=== PATIENT | female | born 1935 | race Caucasian/White ===

== ENCOUNTER 2017-08-16 12:35 | Inpatient (IN) | payer MEDICARE, BC ==
[~2017-08-16] VITALS: Ht 162.6 cm; Wt 74.8 kg
[~2017-08-16 12:35] MED LIST: ARFO15VI2 IH; ATOR20TA PO; BENZ-16 PO; BUDE6HFA IH; CALC-1011 PO; CALC-258 PO; COMBIV INH; CRAN1POW2 MC; CYAN1LOZ SL; DEBROX EACH EAR; DOCU-150 PO; DULO60CA44 PO; ESOM40CA PO; FURO-151 PO; GUAI1TBM14 PO; HYDR-519 PO; IPRA0.2S51 IH; LACT1CAP68 PO; LEVO75TA7 PO; LORA0.5T2 PO; METH1TAB33 PO; METO5TAB69 PO; MIRA25TA PO; MONT10TA21 PO; MULT1CAP34 PO; OMEG-31 PO; PARO30TA76 PO; POTA20TA82 PO; PREG50CA PO; SYSOS BOTHEYE; TRAZ-132 PO; VIT1CAPS5 PO; VIT1CAPS7 PO; lactulose PO
[2017-08-16] MEDS ORDERED: ALBUTEROL (0.083%) 2.5MG/3ML NEB HHN STA ×2 (12:58→13:51)
[2017-08-16] MEDS ORDERED: IPRATROPIUM BROMIDE (0.02%) 0.5MG/2.5ML NEB HHN STA ×2 (12:58→13:51)
[2017-08-16 13:31] LABS: BASOPHILS % 0.4 % (0.0-2.0); HEMATOCRIT. 33.6 % (36.0-48.0); HEMOGLOBIN. 11.1 g/dL (12.0-16.0); LYMPHOCYTES % 14.3 % (20.0-50.0); MEAN CORPUSCULAR HEMOGLOBIN 31.9 pg (28.0-32.0); MEAN CORPUSCULAR VOLUME 96.6 fL (81.0-99.0); MEAN PLATELET VOLUME 8.1 fl (7.4-10.4); MONOCYTES % 6.7 % (2.0-8.0); NEUTROPHILS % 75.6 % (40.0-76.0); PLATELET 182 x1000/uL (130-400); RED BLOOD CELL COUNT 3.48 mill/uL (4.2-5.4); RED CELL DISTRIBUTION WIDTH 15.6 % (11.6-14.6)
[2017-08-16 13:34] LABS: PROTHROMBIN TIME 10.8 sec (9.4-11.6)
[2017-08-16 13:44] LABS: CARBON DIOXIDE 38 mEq/L (21-32); CHLORIDE 95 mEq/L (98-107); TROPONIN I < 0.02 ng/mL (0.00-0.04)
[2017-08-16] MEDS ORDERED: METHYLPREDNISOLONE SOD SUCC 125 MG/2 ML VIAL IV STA (13:51)
[2017-08-16] MEDS ORDERED: FUROSEMIDE 20MG/2ML VIAL IVP ONE (14:00)
[2017-08-16] MEDS ORDERED: CLONIDINE 0.1MG TABLET PO PRN (16:30)
[2017-08-16 18:28] VITALS: BP 139/53
[2017-08-16] MEDS: POTASSIUM CHLORIDE 20MEQ TABLET SR PO SCH (18:55)
[2017-08-16] MEDS: FUROSEMIDE 40MG/4ML VIAL IVP SCH (18:55)
[2017-08-16] MEDS: METHYLPREDNISOLONE SOD SUCC 125 MG/2 ML VIAL IV SCH (18:56)
[2017-08-16 19:43] VITALS: BP 130/73
[2017-08-16] MEDS ORDERED: DEXTROSE 50% WATER 50ML SYRINGE IV PRN (19:45)
[2017-08-16] MEDS: BLOOD SUGAR DIAGNOSTIC STRIP TEST SCH (21:28)
[2017-08-16] MEDS: INSULIN LISPRO 100 UNITS/ML SUBCUT SCH (21:32)
[2017-08-16] MEDS: IPRATROPIUM/ALBUTEROL 0.5-3(2.5)MG/3ML NEB HHN SCH (21:32)
[2017-08-16] MEDS: CEFTRIAXONE 1 G PREMIX 50 ML IV SCH (21:33)
[2017-08-16] MEDS: ENOXAPARIN 40MG/0.4ML SYR SUBCUT SCH (21:33)
[2017-08-16] MEDS: OMEPRAZOLE 20MG CAPSULE EXTENDED RELEASE PO SCH (21:33)
[2017-08-16] MEDS: ATORVASTATIN CALCIUM 20MG TABLET PO SCH (21:33)
[2017-08-16] MEDS: HYDROCODONE/ACETAMINOPHEN 10/325MG TABLET PO PRN (23:06)
[2017-08-16 23:42] VITALS: BP 150/69
[2017-08-17] MEDS: IPRATROPIUM/ALBUTEROL 0.5-3(2.5)MG/3ML NEB HHN SCH ×6 (00:06→20:56)
[2017-08-17] MEDS: METHYLPREDNISOLONE SOD SUCC 125 MG/2 ML VIAL IV SCH ×4 (02:52→20:30)
[2017-08-17 04:48] VITALS: BP 166/82
[2017-08-17] MEDS: HYDROCODONE/ACETAMINOPHEN 10/325MG TABLET PO PRN ×2 (05:05→12:35)
[2017-08-17] MEDS: OMEPRAZOLE 20MG CAPSULE EXTENDED RELEASE PO SCH ×2 (06:39→20:30)
[2017-08-17] MEDS: LEVOTHYROXINE SODIUM 75MCG TABLET PO SCH (06:40)
[2017-08-17] MEDS: BLOOD SUGAR DIAGNOSTIC STRIP TEST SCH ×4 (06:44→20:32)
[2017-08-17 07:11] LABS: HEMOGLOBIN. 12.8 g/dL (12.0-16.0); MEAN CORPUSCULAR HEMOGLOBIN 32.6 pg (28.0-32.0); MEAN CORPUSCULAR VOLUME 96.2 fL (81.0-99.0); MEAN PLATELET VOLUME 8.6 fl (7.4-10.4); PLATELET 210 x1000/uL (130-400); RED BLOOD CELL COUNT 3.95 mill/uL (4.2-5.4); RED CELL DISTRIBUTION WIDTH 15.7 % (11.6-14.6)
[2017-08-17 07:53] LABS: CHLORIDE 91 mEq/L (98-107); CREATINE KINASE 28 IU/L (26-192); CREATINE KINASE MB FRACTION 0.9 ng/mL (0.5-3.6); HDL CHOLESTEROL 78 mg/dL (40-59); LDL CHOLESTEROL 83 mg/dL (5-100)
[2017-08-17 07:54] LABS: TROPONIN I < 0.02 ng/mL (0.00-0.04)
[2017-08-17 08:00] VITALS: BP 166/73
[2017-08-17] MEDS: DULOXETINE HCL 60MG DR CAPSULE PO SCH (08:18)
[2017-08-17] MEDS: POTASSIUM CHLORIDE 20MEQ TABLET SR PO SCH (08:18)
[2017-08-17 08:20] LABS: CARBON DIOXIDE 40 mEq/L (21-32)
[2017-08-17] MEDS: INSULIN LISPRO 100 UNITS/ML SUBCUT SCH ×4 (08:20→20:32)
[2017-08-17] MEDS ORDERED: FUROSEMIDE 100MG/10ML VIAL IVP SCH (09:00)
[2017-08-17] MEDS: FUROSEMIDE 40MG/4ML VIAL IVP SCH (09:00)
[2017-08-17] MEDS ORDERED: DEXTROSE 50% WATER 50ML SYRINGE IV PRN (10:30)
[2017-08-17] MEDS ORDERED: ONDANSETRON HCL 4MG/2ML VIAL IV PRN (10:45)
[2017-08-17] MEDS ORDERED: ACETAMINOPHEN 325MG TABLET PO PRN (10:45)
[2017-08-17] MEDS: LOSARTAN POTASSIUM 25 MG TABLET PO SCH (11:30)
[2017-08-17] MEDS ORDERED: CLONIDINE 0.2MG TABLET PO PRN ×2 (11:30)
[2017-08-17] MEDS ORDERED: ZOLPIDEM TARTRATE 5MG TABLET PO PRN ×3 (11:30→21:00)
[2017-08-17 12:00] VITALS: BP 106/45
[2017-08-17] MEDS: ASPIRIN 81MG EC TABLET PO SCH (12:04)
[2017-08-17] MEDS ORDERED: BLOOD SUGAR DIAGNOSTIC STRIP TEST SCH (12:20)
[2017-08-17 16:00] VITALS: BP 110/60
[2017-08-17 17:38] LABS: PLATELET ESTIMATE NORMAL
[2017-08-17 20:24] LABS: CLARITY URINE CLOUDY (CLEAR); COLOR URINE YELLOW (YELLOW); GLUCOSE URINE NEGATIVE (NEGATIVE); KETONES URINE NEGATIVE (NEGATIVE); LEUKOCYTE ESTERASE URINE 3+ (NEGATIVE); NITRITE URINE NEGATIVE (NEGATIVE); OCCULT BLOOD URINE 1+ (NEGATIVE); PROTEIN URINE 1+ (NEGATIVE); SPECIFIC GRAVITY URINE 1.015 (1.005-1.030); UROBILINOGEN URINE 0.2 E.U./dL (0.2-1.0)
[2017-08-17] MEDS: ENOXAPARIN 40MG/0.4ML SYR SUBCUT SCH (20:29)
[2017-08-17] MEDS: CEFTRIAXONE 1 G PREMIX 50 ML IV SCH (20:29)
[2017-08-17] MEDS: ATORVASTATIN CALCIUM 20MG TABLET PO SCH (20:30)
[2017-08-17 20:51] VITALS: BP 128/47
[2017-08-18 00:27] VITALS: BP 180/98
[2017-08-18] MEDS: IPRATROPIUM/ALBUTEROL 0.5-3(2.5)MG/3ML NEB HHN SCH ×5 (00:43→16:56)
[2017-08-18] MEDS: HYDROCODONE/ACETAMINOPHEN 10/325MG TABLET PO PRN ×2 (03:05→11:05)
[2017-08-18 04:00] VITALS: BP 139/82
[2017-08-18 06:24] LABS: BASOPHILS % 0.1 % (0.0-2.0); HEMATOCRIT. 38.2 % (36.0-48.0); HEMOGLOBIN. 12.7 g/dL (12.0-16.0); LYMPHOCYTES % 7.2 % (20.0-50.0); MEAN CORPUSCULAR VOLUME 95.8 fL (81.0-99.0); MEAN PLATELET VOLUME 8.7 fl (7.4-10.4); NEUTROPHILS % 85.7 % (40.0-76.0); PLATELET 223 x1000/uL (130-400); RED BLOOD CELL COUNT 3.99 mill/uL (4.2-5.4); RED CELL DISTRIBUTION WIDTH 16.3 % (11.6-14.6)
[2017-08-18] MEDS: LEVOTHYROXINE SODIUM 75MCG TABLET PO SCH (06:32)
[2017-08-18] MEDS: OMEPRAZOLE 20MG CAPSULE EXTENDED RELEASE PO SCH ×2 (06:32→20:50)
[2017-08-18] MEDS: BLOOD SUGAR DIAGNOSTIC STRIP TEST SCH ×4 (06:32→20:50)
[2017-08-18 07:42] LABS: CARBON DIOXIDE 38 mEq/L (21-32); CHLORIDE 92 mEq/L (98-107); CREATINE KINASE 41 IU/L (26-192); CREATINE KINASE MB FRACTION 1.7 ng/mL (0.5-3.6); HDL CHOLESTEROL 75 mg/dL (40-59); LDL CHOLESTEROL 78 mg/dL (5-100); TROPONIN I 0.03 ng/mL (0.00-0.04)
[2017-08-18] MEDS: INSULIN LISPRO 100 UNITS/ML SUBCUT SCH ×4 (07:50→20:52)
[2017-08-18 08:00] VITALS: BP 161/79
[2017-08-18] MEDS: POTASSIUM CHLORIDE 20MEQ TABLET SR PO SCH (08:17)
[2017-08-18] MEDS: FUROSEMIDE 40MG/4ML VIAL IVP SCH (08:17)
[2017-08-18] MEDS: ASPIRIN 81MG EC TABLET PO SCH (08:17)
[2017-08-18] MEDS: METHYLPREDNISOLONE SOD SUCC 125 MG/2 ML VIAL IV SCH ×3 (08:17→20:49)
[2017-08-18] MEDS: DULOXETINE HCL 60MG DR CAPSULE PO SCH (08:17)
[2017-08-18] MEDS: LOSARTAN POTASSIUM 25 MG TABLET PO SCH ×2 (08:17→09:45)
[2017-08-18] MEDS: CYCLOBENZAPRINE 10MG TABLET PO SCH ×3 (09:44→20:51)
[2017-08-18] MEDS: GUAIFENESIN 600MG ER TABLET PO SCH ×2 (09:44→20:50)
[2017-08-18] MEDS ORDERED: AZITHROMYCIN 500 MG in DEXT 5% WATER 250 ML IV SCH (11:00)
[2017-08-18] MEDS: DOCUSATE SODIUM 100MG CAPSULE PO PRN (11:04)
[2017-08-18 12:00] VITALS: BP 103/60
[2017-08-18] MEDS ORDERED: POTASSIUM CHLORIDE 20MEQ TABLET SR PO NR (13:15)
[2017-08-18 16:00] VITALS: BP 121/66
[2017-08-18 20:43] VITALS: BP 119/67
[2017-08-18] MEDS: ENOXAPARIN 40MG/0.4ML SYR SUBCUT SCH (20:49)
[2017-08-18] MEDS: CEFTRIAXONE 1 G PREMIX 50 ML IV SCH (20:49)
[2017-08-18] MEDS: ATORVASTATIN CALCIUM 20MG TABLET PO SCH (20:50)
[2017-08-19 00:09] VITALS: BP 160/91
[2017-08-19] MEDS: HYDROCODONE/ACETAMINOPHEN 10/325MG TABLET PO PRN ×2 (00:26→08:18)
[2017-08-19] MEDS: IPRATROPIUM/ALBUTEROL 0.5-3(2.5)MG/3ML NEB HHN SCH ×4 (01:14→12:22)
[2017-08-19 01:47] VITALS: BP 150/76
[2017-08-19 04:00] VITALS: BP 148/86
[2017-08-19 06:18] LABS: BASOPHILS % 0.1 % (0.0-2.0); HEMATOCRIT. 39.4 % (36.0-48.0); HEMOGLOBIN. 13.2 g/dL (12.0-16.0); LYMPHOCYTES % 9.8 % (20.0-50.0); MEAN CORPUSCULAR HEMOGLOBIN 31.9 pg (28.0-32.0); MEAN CORPUSCULAR VOLUME 95.6 fL (81.0-99.0); MEAN PLATELET VOLUME 8.8 fl (7.4-10.4); MONOCYTES % 6.7 % (2.0-8.0); NEUTROPHILS % 83.4 % (40.0-76.0); PLATELET 223 x1000/uL (130-400); RED BLOOD CELL COUNT 4.13 mill/uL (4.2-5.4); RED CELL DISTRIBUTION WIDTH 16.1 % (11.6-14.6)
[2017-08-19] MEDS: CYCLOBENZAPRINE 10MG TABLET PO SCH (06:31)
[2017-08-19] MEDS: OMEPRAZOLE 20MG CAPSULE EXTENDED RELEASE PO SCH (06:31)
[2017-08-19] MEDS: LEVOTHYROXINE SODIUM 75MCG TABLET PO SCH (06:31)
[2017-08-19] MEDS: BLOOD SUGAR DIAGNOSTIC STRIP TEST SCH (06:32)
[2017-08-19 07:26] LABS: CARBON DIOXIDE 38 mEq/L (21-32); CHLORIDE 90 mEq/L (98-107)
[2017-08-19] MEDS: INSULIN LISPRO 100 UNITS/ML SUBCUT SCH (07:46)
[2017-08-19 07:49] VITALS: BP 128/86
[2017-08-19] MEDS: DOCUSATE SODIUM 100MG CAPSULE PO PRN (08:18)
[2017-08-19] MEDS: METHYLPREDNISOLONE SOD SUCC 125 MG/2 ML VIAL IV SCH (08:18)
[2017-08-19] MEDS: DULOXETINE HCL 60MG DR CAPSULE PO SCH (08:18)
[2017-08-19] MEDS: POTASSIUM CHLORIDE 20MEQ TABLET SR PO SCH (08:18)
[2017-08-19] MEDS: ASPIRIN 81MG EC TABLET PO SCH (08:18)
[2017-08-19] MEDS: GUAIFENESIN 600MG ER TABLET PO SCH (08:19)
[2017-08-19] MEDS: LOSARTAN POTASSIUM 25 MG TABLET PO SCH (08:19)
[2017-08-19] MEDS ORDERED: FUROSEMIDE 40MG TABLET PO SCH (09:00)
[2017-08-19] MEDS ORDERED: AZITHROMYCIN 250 MG TABLET PO SCH (09:30)
[2017-08-19] MEDS ORDERED: MAGNESIUM CITRATE 300ML SOLUTION PO NR (11:00)
[2017-08-19] MEDS ORDERED: DOCUSATE SODIUM 100MG CAPSULE PO SCH (11:00)
[2017-08-19] MEDS ORDERED: POTASSIUM CHLORIDE 20MEQ TABLET SR PO NR (11:00)
[2017-08-19] MEDS ORDERED: LACTULOSE 20G/30ML UDC PO NR (11:30)
[2017-08-19 12:00] VITALS: BP 99/49
[2017-08-19] MEDS ORDERED: PREDNISONE 10MG TABLET PO SCH (17:50)
== END 2017-08-19 13:00 | disposition home or self-care (01) | DRG 190 ==
LOC: ER 12:35 → 6WST 13:53 → ENRESERV 17:04
PROVIDERS: ADMIT Internal Medicine Critical Care Medicine; ATTEND Internal Medicine Critical Care Medicine
DX: J44.1 Chronic obstructive pulmonary disease with (acute) exacerbation (principal); I50.33 Acute on chronic diastolic (congestive) heart failure; J96.11 Chronic respiratory failure with hypoxia; E11.51 Type 2 diabetes mellitus with diabetic peripheral angiopathy without gangrene; F11.20 Opioid dependence, uncomplicated; I48.0 Paroxysmal atrial fibrillation; Z99.81 Dependence on supplemental oxygen; J96.12 Chronic respiratory failure with hypercapnia; I11.0 Hypertensive heart disease with heart failure; E03.9 Hypothyroidism, unspecified; E78.5 Hyperlipidemia, unspecified; E87.6 Hypokalemia; G89.29 Other chronic pain; I25.10 Atherosclerotic heart disease of native coronary artery without angina pectoris; M19.90 Unspecified osteoarthritis, unspecified site; F32.9 Major depressive disorder, single episode, unspecified; F41.9 Anxiety disorder, unspecified; J40 Bronchitis, not specified as acute or chronic; M54.9 Dorsalgia, unspecified; M48.00 Spinal stenosis, site unspecified; T38.0X5A Adverse effect of glucocorticoids and synthetic analogues, initial encounter; Z79.51 Long term (current) use of inhaled steroids; Z79.899 Other long term (current) drug therapy; Z87.891 Personal history of nicotine dependence; Z88.5 Allergy status to narcotic agent; Z91.013 Allergy to seafood; Z98.62 Peripheral vascular angioplasty status
CPT/HCPCS: 36415; 71010; 80048; 80053; 80061; 81001; 82550; 82553; 82962; 83036; 83735; 83880; 84443; 84484; 85025; 85379; 85610; 87070; 93005; 93306; 94640; 96374; 96375; 97116; 97162; 97530; 99285; J0456; J0696; J1650; J1815; J1940; J2930; J7030; J7050; J7060; J7611; J7620; A4315

== ENCOUNTER 2017-08-22 14:17 | Inpatient (IN) | payer MEDICARE, BC ==
[~2017-08-22] VITALS: Ht 160 cm; Wt 80.3 kg
[2017-08-22] MEDS ORDERED: DILTIAZEM HCL 5MG/ML 5ML VIAL IV ONE ×2 (14:45→15:30)
[2017-08-22 15:05] LABS: HEMATOCRIT. 36.5 % (36.0-48.0); MEAN CORPUSCULAR HEMOGLOBIN 31.9 pg (28.0-32.0); MEAN CORPUSCULAR VOLUME 97.3 fL (81.0-99.0); MEAN PLATELET VOLUME 8.7 fl (7.4-10.4); PLATELET 177 x1000/uL (130-400); RED BLOOD CELL COUNT 3.75 mill/uL (4.2-5.4)
[2017-08-22 15:13] LABS: PARTIAL THROMBOPLASTIN TIME 23.2 sec (23.4-31.0); PROTHROMBIN TIME 10.9 sec (9.4-11.6)
[2017-08-22] MEDS ORDERED: SODIUM CHLORIDE 0.9% 500 ML IV ONE (15:14)
[2017-08-22 15:20] LABS: CARBON DIOXIDE 35 mEq/L (21-32); CHLORIDE 98 mEq/L (98-107); TROPONIN I < 0.02 ng/mL (0.00-0.04)
[2017-08-22 15:21] LABS: CREATINE KINASE 22 IU/L (26-192); CREATINE KINASE MB FRACTION 1.3 ng/mL (0.5-3.6); T4 FREE 1.22 ng/dL (0.76-1.46)
[2017-08-22 15:33] LABS: PLATELET ESTIMATE NORMAL
[2017-08-22] MEDS ORDERED: FUROSEMIDE 20MG/2ML VIAL IVP ONE (15:45)
[2017-08-22] MEDS ORDERED: DILTIAZEM HCL 125 MG in DEXT 5% WATER 100 ML IV ONE (15:45)
[2017-08-22] MEDS ORDERED: ENOXAPARIN 80MG/0.8ML SYR SUBCUT NR (17:54)
[2017-08-22] MEDS ORDERED: DIGOXIN 500MCG/2ML AMP IV PRN (18:00)
[2017-08-22 18:01] VITALS: BP 105/60
[2017-08-22] MEDS ORDERED: OMEP20TA2 PO (18:27)
[2017-08-22] MEDS ORDERED: P20 PO (18:29)
[2017-08-22] MEDS ORDERED: DEXTROSE 50% WATER 50ML SYRINGE IV PRN (19:00)
[2017-08-22 20:00] VITALS: BP 103/55
[2017-08-22] MEDS: BLOOD SUGAR DIAGNOSTIC STRIP TEST SCH (21:12)
[2017-08-22] MEDS: GUAIFENESIN 600MG ER TABLET PO SCH (21:12)
[2017-08-22] MEDS: INSULIN LISPRO 100 UNITS/ML SUBCUT SCH (21:12)
[2017-08-22] MEDS: OMEPRAZOLE 20MG CAPSULE EXTENDED RELEASE PO SCH (21:12)
[2017-08-22 22:00] VITALS: BP 102/48
[2017-08-23] VITALS (12 sets, daily range): BP systolic 96–148; BP diastolic 43–79
[2017-08-23] MEDS: IPRATROPIUM BROMIDE (0.02%) 0.5MG/2.5ML NEB HHN SCH ×4 (00:40→20:50)
[2017-08-23] MEDS: DILTIAZEM HCL 125 MG in DEXTROSE 5% WATER 125 ML IV PRN (03:28)
[2017-08-23] MEDS: LEVOTHYROXINE SODIUM 75MCG TABLET PO SCH (06:31)
[2017-08-23] MEDS: OMEPRAZOLE 20MG CAPSULE EXTENDED RELEASE PO SCH ×2 (06:31→21:08)
[2017-08-23] MEDS: BLOOD SUGAR DIAGNOSTIC STRIP TEST SCH ×4 (06:41→21:08)
[2017-08-23 06:52] LABS: BASOPHILS % 0.2 % (0.0-2.0); HEMATOCRIT. 35.3 % (36.0-48.0); HEMOGLOBIN. 11.7 g/dL (12.0-16.0); LYMPHOCYTES % 28.1 % (20.0-50.0); MEAN CORPUSCULAR HEMOGLOBIN 32.2 pg (28.0-32.0); MEAN CORPUSCULAR VOLUME 96.9 fL (81.0-99.0); MEAN PLATELET VOLUME 8.7 fl (7.4-10.4); MONOCYTES % 6.4 % (2.0-8.0); NEUTROPHILS % 63.3 % (40.0-76.0); PLATELET 186 x1000/uL (130-400); RED BLOOD CELL COUNT 3.64 mill/uL (4.2-5.4); RED CELL DISTRIBUTION WIDTH 15.5 % (11.6-14.6)
[2017-08-23] MEDS: INSULIN LISPRO 100 UNITS/ML SUBCUT SCH ×4 (07:20→21:00)
[2017-08-23 07:24] LABS: CARBON DIOXIDE 35 mEq/L (21-32); CHLORIDE 99 mEq/L (98-107); CREATINE KINASE 16 IU/L (26-192)
[2017-08-23 07:33] LABS: CREATINE KINASE MB FRACTION 1.3 ng/mL (0.5-3.6); TROPONIN I 0.02 ng/mL (0.00-0.04)
[2017-08-23] MEDS: GUAIFENESIN 600MG ER TABLET PO SCH ×2 (08:41→21:08)
[2017-08-23] MEDS: PREDNISONE 20MG TABLET PO SCH (08:41)
[2017-08-23] MEDS: HYDROCODONE/ACETAMINOPHEN 10/325MG TABLET PO PRN (08:41)
[2017-08-23] MEDS: FUROSEMIDE 40MG TABLET PO SCH (08:41)
[2017-08-23] MEDS ORDERED: POTASSIUM CHLORIDE 20MEQ TABLET SR PO SCH (09:00)
[2017-08-23] MEDS: DOCUSATE SODIUM 100MG CAPSULE PO SCH ×2 (11:19→17:58)
[2017-08-23] MEDS: LACTULOSE 20G/30ML UDC PO PRN (11:19)
[2017-08-23] MEDS ORDERED: POTASSIUM CHLORIDE 20MEQ TABLET SR PO NR (11:45)
[2017-08-23] MEDS: DILTIAZEM HCL 60MG TABLET PO SCH ×2 (12:54→21:08)
[2017-08-23] MEDS: ENOXAPARIN 80MG/0.8ML SYR SUBCUT SCH (12:55)
[2017-08-23] MEDS: POTASSIUM CHLORIDE 20MEQ TABLET SR PO SCH (17:00)
[2017-08-24] VITALS (15 sets, daily range): BP systolic 114–157; BP diastolic 65–106
[2017-08-24] MEDS: IPRATROPIUM BROMIDE (0.02%) 0.5MG/2.5ML NEB HHN SCH ×4 (00:35→21:20)
[2017-08-24] MEDS: ENOXAPARIN 80MG/0.8ML SYR SUBCUT SCH ×2 (01:00→13:09)
[2017-08-24] MEDS: DILTIAZEM HCL 125 MG in DEXTROSE 5% WATER 125 ML IV PRN (05:04)
[2017-08-24] MEDS: LEVOTHYROXINE SODIUM 75MCG TABLET PO SCH (06:17)
[2017-08-24] MEDS: OMEPRAZOLE 20MG CAPSULE EXTENDED RELEASE PO SCH ×2 (06:17→20:11)
[2017-08-24] MEDS: BLOOD SUGAR DIAGNOSTIC STRIP TEST SCH ×4 (06:18→20:21)
[2017-08-24] MEDS: INSULIN LISPRO 100 UNITS/ML SUBCUT SCH ×4 (07:20→20:21)
[2017-08-24 07:59] LABS: BASOPHILS % 0.3 % (0.0-2.0); EOSINOPHILS % 2.1 % (0.0-5.0); HEMATOCRIT. 39.8 % (36.0-48.0); LYMPHOCYTES % 26.4 % (20.0-50.0); MEAN CORPUSCULAR HEMOGLOBIN 31.9 pg (28.0-32.0); MEAN CORPUSCULAR VOLUME 97.6 fL (81.0-99.0); MEAN PLATELET VOLUME 9.8 fl (7.4-10.4); MONOCYTES % 6.6 % (2.0-8.0); NEUTROPHILS % 64.6 % (40.0-76.0); PLATELET 142 x1000/uL (130-400); RED BLOOD CELL COUNT 4.07 mill/uL (4.2-5.4); RED CELL DISTRIBUTION WIDTH 16.2 % (11.6-14.6)
[2017-08-24 08:06] LABS: CARBON DIOXIDE 31 mEq/L (21-32); CHLORIDE 99 mEq/L (98-107); TROPONIN I < 0.02 ng/mL (0.00-0.04)
[2017-08-24] MEDS: FUROSEMIDE 40MG TABLET PO SCH ×2 (09:09→16:47)
[2017-08-24] MEDS: GUAIFENESIN 600MG ER TABLET PO SCH ×2 (09:09→20:11)
[2017-08-24] MEDS: POTASSIUM CHLORIDE 20MEQ TABLET SR PO SCH ×2 (09:09→16:47)
[2017-08-24] MEDS: DOCUSATE SODIUM 100MG CAPSULE PO SCH ×2 (09:09→16:47)
[2017-08-24] MEDS: PREDNISONE 20MG TABLET PO SCH (09:09)
[2017-08-24] MEDS ORDERED: DIGOXIN 500MCG/2ML AMP IV NR (09:30)
[2017-08-24] MEDS: DILTIAZEM HCL 90MG TABLET PO SCH ×2 (12:00→19:52)
[2017-08-24] MEDS: HYDROCODONE/ACETAMINOPHEN 10/325MG TABLET PO PRN ×2 (15:34→21:41)
[2017-08-25] VITALS (10 sets, daily range): BP systolic 100–139; BP diastolic 53–74
[2017-08-25] MEDS: ENOXAPARIN 80MG/0.8ML SYR SUBCUT SCH
[2017-08-25] MEDS: IPRATROPIUM BROMIDE (0.02%) 0.5MG/2.5ML NEB HHN SCH ×3 (01:08→21:10)
[2017-08-25] MEDS: DILTIAZEM HCL 90MG TABLET PO SCH ×4 (01:09→17:11)
[2017-08-25] MEDS: OMEPRAZOLE 20MG CAPSULE EXTENDED RELEASE PO SCH ×2 (06:18→20:48)
[2017-08-25] MEDS: HYDROCODONE/ACETAMINOPHEN 10/325MG TABLET PO PRN (06:18)
[2017-08-25] MEDS: BLOOD SUGAR DIAGNOSTIC STRIP TEST SCH ×4 (06:19→20:54)
[2017-08-25] MEDS: INSULIN LISPRO 100 UNITS/ML SUBCUT SCH ×4 (06:19→21:21)
[2017-08-25] MEDS: FUROSEMIDE 40MG TABLET PO SCH ×2 (06:19→17:08)
[2017-08-25] MEDS: LEVOTHYROXINE SODIUM 75MCG TABLET PO SCH (06:19)
[2017-08-25 07:30] LABS: BASOPHILS % 0.1 % (0.0-2.0); HEMATOCRIT. 36.7 % (36.0-48.0); HEMOGLOBIN. 12.2 g/dL (12.0-16.0); LYMPHOCYTES % 30.5 % (20.0-50.0); MEAN CORPUSCULAR HEMOGLOBIN 31.9 pg (28.0-32.0); MEAN CORPUSCULAR VOLUME 96.2 fL (81.0-99.0); MEAN PLATELET VOLUME 8.8 fl (7.4-10.4); MONOCYTES % 7.7 % (2.0-8.0); NEUTROPHILS % 59.7 % (40.0-76.0); PLATELET 217 x1000/uL (130-400); RED BLOOD CELL COUNT 3.81 mill/uL (4.2-5.4); RED CELL DISTRIBUTION WIDTH 15.8 % (11.6-14.6)
[2017-08-25 08:26] LABS: CARBON DIOXIDE 38 mEq/L (21-32); CHLORIDE 95 mEq/L (98-107)
[2017-08-25] MEDS: DOCUSATE SODIUM 100MG CAPSULE PO SCH ×2 (08:32→17:08)
[2017-08-25] MEDS: PREDNISONE 20MG TABLET PO SCH (08:33)
[2017-08-25] MEDS: GUAIFENESIN 600MG ER TABLET PO SCH ×2 (08:33→20:48)
[2017-08-25] MEDS: POTASSIUM CHLORIDE 20MEQ TABLET SR PO SCH ×2 (08:33→17:13)
[2017-08-25] MEDS ORDERED: GENTAMICIN SULF 40MG/ML 2ML VIAL ONE (10:55)
[2017-08-25] MEDS ORDERED: LIDOCAINE HCL 1% 20ML VIAL (Pyxis) INJ ONE (10:55)
[2017-08-25] MEDS ORDERED: GENTAMICIN/NS IRRIGATION 500 ML IR ONE (10:57)
[2017-08-25] MEDS ORDERED: CEFAZOLIN 1000MG PREMIX 50 ML IV ONE (11:35)
[2017-08-25] MEDS ORDERED: IOHEXOL-300 100 ML BOTTLE ONE (11:43)
[2017-08-25] MEDS ORDERED: FAMOTIDINE 20MG/2ML VIAL IV ONE (11:44)
[2017-08-25] MEDS ORDERED: DIPHENHYDRAMINE 50MG/ML VIAL ONE (11:44)
[2017-08-25] MEDS ORDERED: HYDROCORTISONE SOD SUCCINATE 250 MG/2 ML VIAL ONE (11:44)
[2017-08-25] MEDS ORDERED: PROPOFOL 200MG/20ML VIAL IV ONE (11:50)
[2017-08-25] MEDS ORDERED: HEPARIN SODIUM 1,000 UNIT/1ML VIAL IV ONE (14:02)
[2017-08-25] MEDS: HYDROCODONE/ACETAMINOPHEN 5/325MG TABLET PO PRN ×2 (15:40→20:53)
[2017-08-25] MEDS: CEFAZOLIN 1000MG PREMIX 50 ML IV SCH (20:48)
[2017-08-26] VITALS (27 sets, daily range): BP systolic 93–156; BP diastolic 53–88
[2017-08-26] MEDS: DILTIAZEM HCL 90MG TABLET PO SCH ×4 (01:18→17:04)
[2017-08-26] MEDS: IPRATROPIUM BROMIDE (0.02%) 0.5MG/2.5ML NEB HHN SCH ×3 (02:01→21:05)
[2017-08-26] MEDS: HYDROCODONE/ACETAMINOPHEN 5/325MG TABLET PO PRN (02:08)
[2017-08-26] MEDS: CEFAZOLIN 1000MG PREMIX 50 ML IV SCH (05:08)
[2017-08-26] MEDS: BLOOD SUGAR DIAGNOSTIC STRIP TEST SCH ×2 (06:30→11:23)
[2017-08-26] MEDS: INSULIN LISPRO 100 UNITS/ML SUBCUT SCH ×2 (06:30→11:23)
[2017-08-26] MEDS: LEVOTHYROXINE SODIUM 75MCG TABLET PO SCH (06:31)
[2017-08-26] MEDS: OMEPRAZOLE 20MG CAPSULE EXTENDED RELEASE PO SCH ×2 (06:31→22:13)
[2017-08-26] MEDS: FUROSEMIDE 40MG TABLET PO SCH ×2 (06:37→16:42)
[2017-08-26 06:43] LABS: BASOPHILS % 0.3 % (0.0-2.0); EOSINOPHILS % 0.7 % (0.0-5.0); HEMOGLOBIN. 12.3 g/dL (12.0-16.0); MEAN CORPUSCULAR HEMOGLOBIN 31.9 pg (28.0-32.0); MEAN CORPUSCULAR VOLUME 95.7 fL (81.0-99.0); MEAN PLATELET VOLUME 8.5 fl (7.4-10.4); PLATELET 215 x1000/uL (130-400); RED BLOOD CELL COUNT 3.86 mill/uL (4.2-5.4); RED CELL DISTRIBUTION WIDTH 15.3 % (11.6-14.6)
[2017-08-26 07:20] LABS: CARBON DIOXIDE 38 mEq/L (21-32); CHLORIDE 93 mEq/L (98-107); TROPONIN I 0.11 ng/mL (0.00-0.04)
[2017-08-26] MEDS ORDERED: LIDOCAINE HCL 1% 20ML VIAL (Pyxis) INJ ONE ×2 (07:20→08:36)
[2017-08-26] MEDS ORDERED: KCL 10MEQ/50ML PREMIX 100 ML IV ONE (07:30)
[2017-08-26] MEDS ORDERED: POTASSIUM CHLORIDE INJ 10 MEQ in SODIUM CHLORIDE 0.9% 100 ML IV SCH (07:45)
[2017-08-26] MEDS ORDERED: PHENYLEPHRINE HCL 10 MG/ML 1ML (IV VIAL) IV ONE (08:36)
[2017-08-26] MEDS ORDERED: SUCCINYLCHOLINE CHLORIDE 200MG/10ML VIAL IV ONE (08:36)
[2017-08-26] MEDS ORDERED: PROPOFOL 200MG/20ML VIAL IV ONE (08:36)
[2017-08-26] MEDS ORDERED: ONDANSETRON HCL 4MG/2ML VIAL ONE (08:37)
[2017-08-26] MEDS ORDERED: FENTANYL CITRATE/PF 50MCG/ML 2ML VIAL ONE (08:39)
[2017-08-26] MEDS ORDERED: MIDAZOLAM HCL 2 MG/2 ML VIAL ONE (08:39)
[2017-08-26] MEDS ORDERED: CEFAZOLIN 1000MG PREMIX 50 ML IV ONE (08:45)
[2017-08-26] MEDS ORDERED: LABETALOL 5MG/ML SYR 20 MG/4 ML SYRINGE IV PRN (09:00)
[2017-08-26] MEDS ORDERED: ONDANSETRON HCL 4MG/2ML VIAL IV PRN ×2 (09:00→10:45)
[2017-08-26] MEDS ORDERED: MEPERIDINE HCL/PF 25MG/ML CPJ IV PRN (09:00)
[2017-08-26] MEDS ORDERED: HYDROMORPHONE HCL/PF 2MG/ML CPJ IV PRN (09:00)
[2017-08-26] MEDS ORDERED: POTASSIUM CHLORIDE 20MEQ/PACKET PO NR (10:45)
[2017-08-26] MEDS ORDERED: ACETAMINOPHEN 325MG TABLET PO PRN (10:45)
[2017-08-26] MEDS: POTASSIUM CHLORIDE 20MEQ TABLET SR PO SCH ×2 (11:19→16:42)
[2017-08-26] MEDS: GUAIFENESIN 600MG ER TABLET PO SCH ×2 (11:20→22:13)
[2017-08-26] MEDS: DOCUSATE SODIUM 100MG CAPSULE PO SCH ×2 (11:20→16:42)
[2017-08-26] MEDS: PREDNISONE 20MG TABLET PO SCH (11:20)
[2017-08-26] MEDS: HYDROCODONE/ACETAMINOPHEN 10/325MG TABLET PO PRN (22:39)
[2017-08-27] VITALS (13 sets, daily range): BP systolic 92–169; BP diastolic 45–82
[2017-08-27] MEDS: IPRATROPIUM BROMIDE (0.02%) 0.5MG/2.5ML NEB HHN SCH ×4 (01:15→19:56)
[2017-08-27 06:31] LABS: BASOPHILS % 0.3 % (0.0-2.0); EOSINOPHILS % 0.6 % (0.0-5.0); HEMOGLOBIN. 13.9 g/dL (12.0-16.0); MEAN CORPUSCULAR HEMOGLOBIN 32.4 pg (28.0-32.0); MEAN CORPUSCULAR VOLUME 98.1 fL (81.0-99.0); MEAN PLATELET VOLUME 9.7 fl (7.4-10.4); MONOCYTES % 8.8 % (2.0-8.0); NEUTROPHILS % 72.3 % (40.0-76.0); PLATELET 167 x1000/uL (130-400); RED BLOOD CELL COUNT 4.28 mill/uL (4.2-5.4); RED CELL DISTRIBUTION WIDTH 15.6 % (11.6-14.6)
[2017-08-27] MEDS: OMEPRAZOLE 20MG CAPSULE EXTENDED RELEASE PO SCH (06:53)
[2017-08-27] MEDS: FUROSEMIDE 40MG TABLET PO SCH ×2 (06:53→17:49)
[2017-08-27] MEDS: LEVOTHYROXINE SODIUM 75MCG TABLET PO SCH (06:53)
[2017-08-27] MEDS: DILTIAZEM HCL 90MG TABLET PO SCH ×5 (06:54→18:00)
[2017-08-27 07:07] LABS: CARBON DIOXIDE 35 mEq/L (21-32); CHLORIDE 92 mEq/L (98-107)
[2017-08-27] MEDS: PREDNISONE 20MG TABLET PO SCH (09:00)
[2017-08-27] MEDS: POTASSIUM CHLORIDE 20MEQ TABLET SR PO SCH ×2 (10:52→17:49)
[2017-08-27] MEDS: DOCUSATE SODIUM 100MG CAPSULE PO SCH ×2 (10:52→17:49)
[2017-08-27] MEDS: GUAIFENESIN 600MG ER TABLET PO SCH ×2 (10:52→21:35)
[2017-08-27] MEDS: HYDROCODONE/ACETAMINOPHEN 10/325MG TABLET PO PRN (12:17)
[2017-08-28] VITALS (12 sets, daily range): BP systolic 98–152; BP diastolic 35–71
[2017-08-28] MEDS: DILTIAZEM HCL 90MG TABLET PO SCH ×5 (00:59→23:03)
[2017-08-28] MEDS: IPRATROPIUM BROMIDE (0.02%) 0.5MG/2.5ML NEB HHN SCH ×3 (02:56→19:57)
[2017-08-28] MEDS: LEVOTHYROXINE SODIUM 75MCG TABLET PO SCH (06:21)
[2017-08-28] MEDS: POTASSIUM CHLORIDE 20MEQ TABLET SR PO SCH ×2 (09:13→17:54)
[2017-08-28] MEDS: DOCUSATE SODIUM 100MG CAPSULE PO SCH ×2 (09:13→17:54)
[2017-08-28] MEDS: FAMOTIDINE 20MG TABLET PO SCH ×2 (09:13→17:54)
[2017-08-28] MEDS: FUROSEMIDE 40MG TABLET PO SCH ×2 (09:13→17:54)
[2017-08-28] MEDS: HYDROCODONE/ACETAMINOPHEN 5/325MG TABLET PO PRN ×3 (09:14→21:01)
[2017-08-28] MEDS: GUAIFENESIN 600MG ER TABLET PO SCH ×2 (10:20→21:01)
[2017-08-28] MEDS ORDERED: MAGNESIUM HYDROXIDE 400MG/5ML 30ML UDC PO NR (13:00)
[2017-08-28 15:41] LABS: BASOPHILS % 0.6 % (0.0-2.0); EOSINOPHILS % 1.2 % (0.0-5.0); HEMOGLOBIN. 12.3 g/dL (12.0-16.0); LYMPHOCYTES % 9.8 % (20.0-50.0); MEAN CORPUSCULAR HEMOGLOBIN 31.8 pg (28.0-32.0); MEAN CORPUSCULAR VOLUME 95.9 fL (81.0-99.0); MEAN PLATELET VOLUME 8.6 fl (7.4-10.4); MONOCYTES % 7.3 % (2.0-8.0); NEUTROPHILS % 81.1 % (40.0-76.0); PLATELET 203 x1000/uL (130-400); RED BLOOD CELL COUNT 3.86 mill/uL (4.2-5.4); RED CELL DISTRIBUTION WIDTH 15.4 % (11.6-14.6)
[2017-08-28 15:44] LABS: CHLORIDE 85 mEq/L (98-107)
[2017-08-28 15:53] LABS: CARBON DIOXIDE 39 mEq/L (21-32)
[2017-08-29] VITALS (9 sets, daily range): BP systolic 100–138; BP diastolic 51–75
[2017-08-29] MEDS: HYDROCODONE/ACETAMINOPHEN 5/325MG TABLET PO PRN ×4 (01:10→21:32)
[2017-08-29] MEDS: IPRATROPIUM BROMIDE (0.02%) 0.5MG/2.5ML NEB HHN SCH ×5 (02:31→20:34)
[2017-08-29] MEDS: FUROSEMIDE 40MG TABLET PO SCH ×2 (06:29→17:17)
[2017-08-29] MEDS: DILTIAZEM HCL 90MG TABLET PO SCH ×3 (06:30→17:16)
[2017-08-29] MEDS: LEVOTHYROXINE SODIUM 75MCG TABLET PO SCH (06:30)
[2017-08-29 06:57] LABS: BASOPHILS % 0.4 % (0.0-2.0); EOSINOPHILS % 1.3 % (0.0-5.0); HEMATOCRIT. 37.1 % (36.0-48.0); HEMOGLOBIN. 12.4 g/dL (12.0-16.0); LYMPHOCYTES % 11.6 % (20.0-50.0); MEAN CORPUSCULAR HEMOGLOBIN 32.2 pg (28.0-32.0); MEAN PLATELET VOLUME 8.8 fl (7.4-10.4); MONOCYTES % 5.8 % (2.0-8.0); NEUTROPHILS % 80.9 % (40.0-76.0); PLATELET 190 x1000/uL (130-400); RED BLOOD CELL COUNT 3.86 mill/uL (4.2-5.4); RED CELL DISTRIBUTION WIDTH 15.4 % (11.6-14.6)
[2017-08-29 07:26] LABS: CHLORIDE 86 mEq/L (98-107)
[2017-08-29 07:48] LABS: CARBON DIOXIDE 41 mEq/L (21-32)
[2017-08-29] MEDS: DOCUSATE SODIUM 100MG CAPSULE PO SCH ×2 (08:42→17:16)
[2017-08-29] MEDS: POTASSIUM CHLORIDE 20MEQ TABLET SR PO SCH ×2 (08:43→17:16)
[2017-08-29] MEDS: GUAIFENESIN 600MG ER TABLET PO SCH ×2 (08:43→21:32)
[2017-08-29] MEDS: LACTULOSE 20G/30ML UDC PO PRN (08:43)
[2017-08-29] MEDS: FAMOTIDINE 20MG TABLET PO SCH ×2 (08:43→17:16)
[2017-08-29] MEDS ORDERED: MAGNESIUM/ALUMINUM HYDROXIDE/SIMETHICONE 30ML UDC PO SCH (10:15)
[2017-08-29] MEDS ORDERED: NON FORMULARY PATIENT HOME MED EA ORI SCH (11:15)
[2017-08-29] MEDS: STIOLTO RESPIMAT PO SCH (17:27)
[2017-08-30] VITALS (11 sets, daily range): BP systolic 97–136; BP diastolic 50–76
[2017-08-30] MEDS: DILTIAZEM HCL 90MG TABLET PO SCH ×4 (00:54→18:20)
[2017-08-30 06:43] LABS: HEMATOCRIT. 36.6 % (36.0-48.0); HEMOGLOBIN. 12.2 g/dL (12.0-16.0); MEAN CORPUSCULAR HEMOGLOBIN 31.9 pg (28.0-32.0); MEAN PLATELET VOLUME 8.9 fl (7.4-10.4); PLATELET 189 x1000/uL (130-400); RED BLOOD CELL COUNT 3.81 mill/uL (4.2-5.4); RED CELL DISTRIBUTION WIDTH 15.7 % (11.6-14.6)
[2017-08-30] MEDS: FUROSEMIDE 40MG TABLET PO SCH ×2 (06:51→16:30)
[2017-08-30] MEDS: HYDROCODONE/ACETAMINOPHEN 5/325MG TABLET PO PRN (06:51)
[2017-08-30] MEDS: LEVOTHYROXINE SODIUM 75MCG TABLET PO SCH (06:52)
[2017-08-30 07:10] LABS: CARBON DIOXIDE 38 mEq/L (21-32); CHLORIDE 89 mEq/L (98-107)
[2017-08-30] MEDS: IPRATROPIUM BROMIDE (0.02%) 0.5MG/2.5ML NEB HHN SCH ×3 (07:29→20:22)
[2017-08-30] MEDS: STIOLTO RESPIMAT PO SCH (08:29)
[2017-08-30] MEDS: GUAIFENESIN 600MG ER TABLET PO SCH ×2 (08:29→21:17)
[2017-08-30] MEDS: LACTULOSE 20G/30ML UDC PO PRN (08:29)
[2017-08-30] MEDS: DOCUSATE SODIUM 100MG CAPSULE PO SCH ×2 (08:30→16:30)
[2017-08-30] MEDS: POTASSIUM CHLORIDE 20MEQ TABLET SR PO SCH ×2 (08:30→16:30)
[2017-08-30] MEDS: FAMOTIDINE 20MG TABLET PO SCH ×2 (08:30→16:30)
[2017-08-30 10:45] LABS: PLATELET ESTIMATE NORMAL
[2017-08-30] MEDS: MAGNESIUM CITRATE 300ML SOLUTION PO PRN ×2 (12:53→18:19)
[2017-08-30] MEDS ORDERED: AZITHROMYCIN 500 MG in DEXT 5% WATER 250 ML IV SCH (13:00)
[2017-08-30] MEDS: CEFTRIAXONE 1 G PREMIX 50 ML IV SCH (14:36)
[2017-08-30 14:53] LABS: CLARITY URINE CLOUDY (CLEAR); COLOR URINE YELLOW (YELLOW); GLUCOSE URINE NEGATIVE (NEGATIVE); KETONES URINE NEGATIVE (NEGATIVE); LEUKOCYTE ESTERASE URINE TRACE (NEGATIVE); NITRITE URINE NEGATIVE (NEGATIVE); OCCULT BLOOD URINE NEGATIVE (NEGATIVE); PH URINE 7.5 (4.5-8.0); PROTEIN URINE NEGATIVE (NEGATIVE); SPECIFIC GRAVITY URINE 1.015 (1.005-1.030)
[2017-08-30] MEDS: TRAMADOL 50MG TABLET PO PRN (18:20)
[2017-08-30] MEDS ORDERED: TRAZODONE HCL 100MG TABLET PO SCH (21:00)
[2017-08-30] MEDS ORDERED: POLYETHYLENE GLYCOL 3350 (17GM) 1 DOSE PACK PO SCH (21:00)
[2017-08-30] MEDS: LACTULOSE 20G/30ML UDC PO SCH (21:17)
[2017-08-31] VITALS (11 sets, daily range): BP systolic 104–136; BP diastolic 45–86
[2017-08-31] MEDS: LACTULOSE 20G/30ML UDC PO PRN (00:25)
[2017-08-31] MEDS: TRAMADOL 50MG TABLET PO PRN (04:04)
[2017-08-31] MEDS: FUROSEMIDE 40MG TABLET PO SCH (06:20)
[2017-08-31] MEDS: LEVOTHYROXINE SODIUM 75MCG TABLET PO SCH (06:20)
[2017-08-31] MEDS: DILTIAZEM HCL 90MG TABLET PO SCH ×3 (06:20→11:32)
[2017-08-31 07:49] LABS: BASOPHILS % 0.5 % (0.0-2.0); EOSINOPHILS % 1.2 % (0.0-5.0); HEMOGLOBIN. 11.6 g/dL (12.0-16.0); LYMPHOCYTES % 12.9 % (20.0-50.0); MEAN CORPUSCULAR HEMOGLOBIN 31.7 pg (28.0-32.0); MEAN CORPUSCULAR VOLUME 95.9 fL (81.0-99.0); MEAN PLATELET VOLUME 8.7 fl (7.4-10.4); MONOCYTES % 6.6 % (2.0-8.0); NEUTROPHILS % 78.8 % (40.0-76.0); PLATELET 186 x1000/uL (130-400); RED BLOOD CELL COUNT 3.65 mill/uL (4.2-5.4); RED CELL DISTRIBUTION WIDTH 15.3 % (11.6-14.6)
[2017-08-31 08:04] LABS: CARBON DIOXIDE 39 mEq/L (21-32); CHLORIDE 87 mEq/L (98-107)
[2017-08-31] MEDS: IPRATROPIUM BROMIDE (0.02%) 0.5MG/2.5ML NEB HHN SCH (08:12)
[2017-08-31] MEDS ORDERED: DOCUSATE SODIUM 100MG CAPSULE PO SCH (09:00)
[2017-08-31] MEDS: LACTULOSE 20G/30ML UDC PO SCH ×2 (09:00→12:53)
[2017-08-31] MEDS: POTASSIUM CHLORIDE 20MEQ TABLET SR PO SCH (09:30)
[2017-08-31] MEDS: FAMOTIDINE 20MG TABLET PO SCH (09:30)
[2017-08-31] MEDS: GUAIFENESIN 600MG ER TABLET PO SCH (09:30)
[2017-08-31] MEDS: DOCUSATE SODIUM 100MG CAPSULE PO SCH (09:30)
[2017-08-31] MEDS: STIOLTO RESPIMAT PO SCH (09:31)
[2017-08-31] MEDS ORDERED: AZITHROMYCIN 500 MG TABLET PO SCH (10:30)
[2017-08-31] MEDS: CEFTRIAXONE 1 G PREMIX 50 ML IV SCH (11:32)
[2017-08-31] MEDS ORDERED: ALBUTEROL (0.083%) 2.5MG/3ML NEB HHN SCH (12:00)
== END 2017-08-31 15:45 | DRG 242 ==
LOC: ER 14:23 → 3WST 15:39 → EDBEDREQ 15:42 → EDBEDREQSVC 15:42 → ENRESERV 16:58
PROVIDERS: ADMIT Internal Medicine Critical Care Medicine; ATTEND Internal Medicine Critical Care Medicine
PROC: 0JH606Z Insertion of Pacemaker, Dual Chamber into Chest Subcutaneous Tissue and Fascia, Open Approach (ICD-10-PCS; 2017-08-25)
PROC: B5171ZZ Fluoroscopy of Left Subclavian Vein using Low Osmolar Contrast (ICD-10-PCS; 2017-08-25)
PROC: 02HK3JZ Insertion of Pacemaker Lead into Right Ventricle, Percutaneous Approach (ICD-10-PCS; 2017-08-25)
PROC: 02H63JZ Insertion of Pacemaker Lead into Right Atrium, Percutaneous Approach (ICD-10-PCS; principal; 2017-08-25 13:00)
PROC: 02583ZZ Destruction of Conduction Mechanism, Percutaneous Approach (ICD-10-PCS; 2017-08-27)
PROC: 02K83ZZ Map Conduction Mechanism, Percutaneous Approach (ICD-10-PCS; 2017-08-27)
DX: I48.0 Paroxysmal atrial fibrillation (principal); J18.9 Pneumonia, unspecified organism; I50.41 Acute combined systolic (congestive) and diastolic (congestive) heart failure; E11.51 Type 2 diabetes mellitus with diabetic peripheral angiopathy without gangrene; I27.20 Pulmonary hypertension, unspecified; I11.0 Hypertensive heart disease with heart failure; E44.1 Mild protein-calorie malnutrition; F11.20 Opioid dependence, uncomplicated; Z99.81 Dependence on supplemental oxygen; J98.11 Atelectasis; E03.9 Hypothyroidism, unspecified; M48.00 Spinal stenosis, site unspecified; D64.9 Anemia, unspecified; D72.829 Elevated white blood cell count, unspecified; E78.00 Pure hypercholesterolemia, unspecified; F32.9 Major depressive disorder, single episode, unspecified; F41.9 Anxiety disorder, unspecified; F43.9 Reaction to severe stress, unspecified; G89.4 Chronic pain syndrome; I25.10 Atherosclerotic heart disease of native coronary artery without angina pectoris; I44.2 Atrioventricular block, complete; I48.92 Unspecified atrial flutter; J44.9 Chronic obstructive pulmonary disease, unspecified; K59.00 Constipation, unspecified; Z96.611 Presence of right artificial shoulder joint; M19.90 Unspecified osteoarthritis, unspecified site; M75.02 Adhesive capsulitis of left shoulder; M75.01 Adhesive capsulitis of right shoulder; M48.02 Spinal stenosis, cervical region; M48.061 Spinal stenosis, lumbar region without neurogenic claudication; M54.2 Cervicalgia; R32 Unspecified urinary incontinence; T38.0X5A Adverse effect of glucocorticoids and synthetic analogues, initial encounter; Z79.899 Other long term (current) drug therapy; Z86.73 Personal history of transient ischemic attack (TIA), and cerebral infarction without residual deficits; Z87.891 Personal history of nicotine dependence; Z90.710 Acquired absence of both cervix and uterus; Z88.5 Allergy status to narcotic agent; Z88.6 Allergy status to analgesic agent; Z91.041 Radiographic dye allergy status; Z91.013 Allergy to seafood; Z68.31 Body mass index [BMI] 31.0-31.9, adult
CPT/HCPCS: 33217; 36415; 71010; 75820; 80048; 80053; 81001; 82550; 82553; 82962; 83690; 83735; 83880; 84132; 84439; 84443; 84481; 84484; 85025; 85610; 85730; 87040; 87070; 87086; 93005; 93306; 93613; 93650; 93970; 94640; 94664; 96374; 96375; 96376; 97110; 97116; 97162; 97164; 97166; 97530; 99291; A6261; C1731; C1732; C1769; C1785; C1892; C1893; C1898; J0330; J0456; J0690; J0696; J1160; J1200; J1580; J1644; J1650; J1720; J1815; J1940; J2250; J2370; J2405; J2704; J3010; J3480; J3490; J7030; J7040; J7050; J7060; J7512; J7611; Q9967

== ENCOUNTER 2017-08-31 16:00 | Inpatient (IN) | payer MEDICARE, BC ==
[~2017-08-31] VITALS: Ht 160 cm; Wt 78.0 kg
[2017-08-31 16:00] VITALS: BP 125/78
[~2017-08-31 16:00] MED LIST changes: +OMEP20TA2 PO; +P20 PO
[2017-08-31 17:44] VITALS: BP 125/78
[2017-08-31 20:00] VITALS: BP 125/86
[2017-08-31] MEDS ORDERED: ONDANSETRON HCL 4MG/2ML VIAL IV PRN (20:00)
[2017-08-31] MEDS ORDERED: LACTULOSE 20G/30ML UDC PO PRN (20:00)
[2017-08-31] MEDS ORDERED: INFLUENZA VIRUS VACCINE 0.5ML SYR IM ONE (21:00)
[2017-08-31] MEDS ORDERED: TRAZODONE HCL 100MG TABLET PO SCH (21:00)
[2017-08-31] MEDS: POLYETHYLENE GLYCOL 3350 (17GM) 1 DOSE PACK PO SCH (21:00)
[2017-08-31] MEDS: LACTULOSE 20G/30ML UDC PO SCH (21:00)
[2017-08-31] MEDS: GUAIFENESIN 600MG ER TABLET PO SCH (22:01)
[2017-09-01] MEDS: ALBUTEROL (0.083%) 2.5MG/3ML NEB HHN SCH ×4 (01:51→21:02)
[2017-09-01] MEDS: LEVOTHYROXINE SODIUM 75MCG TABLET PO SCH (06:51)
[2017-09-01] MEDS: DILTIAZEM HCL 90MG TABLET PO SCH ×4 (06:51→21:53)
[2017-09-01 07:03] LABS: CARBON DIOXIDE 39 mEq/L (21-32); CHLORIDE 91 mEq/L (98-107); PREALBUMIN 16.5 mg/dL (20.0-40.0)
[2017-09-01 07:43] VITALS: BP 110/62
[2017-09-01 08:02] VITALS: BP 110/62
[2017-09-01 08:17] LABS: HEMOGLOBIN. 11.9 g/dL (12.0-16.0); MEAN CORPUSCULAR HEMOGLOBIN 32.8 pg (28.0-32.0); MEAN CORPUSCULAR VOLUME 95.9 fL (81.0-99.0); PLATELET 187 x1000/uL (130-400); RED BLOOD CELL COUNT 3.65 mill/uL (4.2-5.4); RED CELL DISTRIBUTION WIDTH 15.5 % (11.6-14.6)
[2017-09-01] MEDS: LACTULOSE 20G/30ML UDC PO SCH (09:00)
[2017-09-01] MEDS: DOCUSATE SODIUM 100MG CAPSULE PO SCH ×2 (09:00→17:00)
[2017-09-01] MEDS: ENOXAPARIN 40MG/0.4ML SYR SUBCUT SCH (11:48)
[2017-09-01] MEDS: AZITHROMYCIN 500 MG TABLET PO SCH (11:49)
[2017-09-01] MEDS: FUROSEMIDE 40MG TABLET PO SCH ×2 (11:49→18:03)
[2017-09-01] MEDS: OLODATEROL PO SCH (11:49)
[2017-09-01] MEDS: GUAIFENESIN 600MG ER TABLET PO SCH ×2 (11:49→21:43)
[2017-09-01] MEDS: POTASSIUM CHLORIDE 20MEQ TABLET SR PO SCH ×2 (11:49→18:03)
[2017-09-01] MEDS: TIOTROPIUM PO SCH (11:49)
[2017-09-01] MEDS: FAMOTIDINE 20MG TABLET PO SCH ×2 (11:49→18:03)
[2017-09-01] MEDS: ACETAMINOPHEN 325MG TABLET PO PRN (12:12)
[2017-09-01] MEDS: CEFTRIAXONE 1 G PREMIX 50 ML IV SCH (12:52)
[2017-09-01 18:22] LABS: PLATELET ESTIMATE NORMAL
[2017-09-01 20:00] VITALS: BP 146/91
[2017-09-01] MEDS: TRAMADOL 50MG TABLET PO PRN (20:12)
[2017-09-01] MEDS: POLYETHYLENE GLYCOL 3350 (17GM) 1 DOSE PACK PO SCH (21:00)
[2017-09-02] MEDS: ALBUTEROL (0.083%) 2.5MG/3ML NEB HHN SCH ×4 (00:53→20:25)
[2017-09-02 08:00] VITALS: BP 119/66
[2017-09-02] MEDS: GUAIFENESIN 600MG ER TABLET PO SCH ×2 (09:00→21:10)
[2017-09-02] MEDS: OLODATEROL PO SCH (09:00)
[2017-09-02] MEDS: DOCUSATE SODIUM 100MG CAPSULE PO SCH ×2 (09:00→17:53)
[2017-09-02] MEDS: TIOTROPIUM PO SCH (09:00)
[2017-09-02] MEDS: POTASSIUM CHLORIDE 20MEQ TABLET SR PO SCH ×2 (09:00→17:53)
[2017-09-02] MEDS: FUROSEMIDE 40MG TABLET PO SCH ×2 (09:00→17:53)
[2017-09-02] MEDS: ENOXAPARIN 40MG/0.4ML SYR SUBCUT SCH (09:00)
[2017-09-02] MEDS: AZITHROMYCIN 500 MG TABLET PO SCH (09:00)
[2017-09-02] MEDS: FAMOTIDINE 20MG TABLET PO SCH ×2 (09:00→17:53)
[2017-09-02] MEDS: TRAMADOL 50MG TABLET PO PRN ×2 (09:38→15:56)
[2017-09-02] MEDS: CEFTRIAXONE 1 G PREMIX 50 ML IV SCH (12:53)
[2017-09-02 12:55] LABS: BASOPHILS % 0.6 % (0.0-2.0); HEMATOCRIT. 32.9 % (36.0-48.0); HEMOGLOBIN. 10.9 g/dL (12.0-16.0); LYMPHOCYTES % 11.3 % (20.0-50.0); MEAN CORPUSCULAR HEMOGLOBIN 31.9 pg (28.0-32.0); MEAN CORPUSCULAR VOLUME 96.3 fL (81.0-99.0); MEAN PLATELET VOLUME 8.7 fl (7.4-10.4); MONOCYTES % 7.4 % (2.0-8.0); NEUTROPHILS % 78.7 % (40.0-76.0); PLATELET 202 x1000/uL (130-400); RED BLOOD CELL COUNT 3.42 mill/uL (4.2-5.4); RED CELL DISTRIBUTION WIDTH 15.8 % (11.6-14.6)
[2017-09-02 13:26] LABS: CARBON DIOXIDE 36 mEq/L (21-32); CHLORIDE 91 mEq/L (98-107); HDL CHOLESTEROL 62 mg/dL (40-59); LDL CHOLESTEROL 101 mg/dL (5-100); PHOSPHORUS 2.7 mg/dL (2.5-4.9)
[2017-09-02 13:27] LABS: FERRITIN 217 ng/mL (10-291)
[2017-09-02 13:36] LABS: TOTAL IRON BINDING CAPACITY 234 ug/dL (250-450)
[2017-09-02] MEDS: DILTIAZEM HCL 60MG TABLET PO SCH ×2 (13:53→21:11)
[2017-09-02] MEDS: LACTULOSE 20G/30ML UDC PO SCH ×3 (14:14→21:00)
[2017-09-02 14:47] LABS: FOLIC ACID (FOLATE) SERUM > 20.00 ng/mL (>5.38); VITAMIN B12 SERUM > 2000.0 pg/mL (211-911)
[2017-09-02] MEDS ORDERED: LORAZEPAM 0.5MG TABLET PO PRN (17:34)
[2017-09-02 20:00] VITALS: BP 121/64
[2017-09-02] MEDS: POLYETHYLENE GLYCOL 3350 (17GM) 1 DOSE PACK PO SCH (21:00)
[2017-09-03] MEDS: ALBUTEROL (0.083%) 2.5MG/3ML NEB HHN SCH ×4 (01:37→20:22)
[2017-09-03] MEDS: DILTIAZEM HCL 60MG TABLET PO SCH ×3 (05:34→22:00)
[2017-09-03] MEDS: LEVOTHYROXINE SODIUM 75MCG TABLET PO SCH (06:17)
[2017-09-03 06:55] LABS: HEMOGLOBIN. 11.1 g/dL (12.0-16.0); MEAN CORPUSCULAR HEMOGLOBIN 32.1 pg (28.0-32.0); MEAN CORPUSCULAR VOLUME 95.5 fL (81.0-99.0); MEAN PLATELET VOLUME 8.7 fl (7.4-10.4); PLATELET 199 x1000/uL (130-400); RED BLOOD CELL COUNT 3.45 mill/uL (4.2-5.4); RED CELL DISTRIBUTION WIDTH 15.3 % (11.6-14.6)
[2017-09-03 07:14] LABS: CHLORIDE 93 mEq/L (98-107)
[2017-09-03 07:19] LABS: CARBON DIOXIDE 36 mEq/L (21-32)
[2017-09-03 08:00] VITALS: BP 99/57
[2017-09-03] MEDS: LACTULOSE 20G/30ML UDC PO SCH ×4 (08:06→22:01)
[2017-09-03] MEDS: AZITHROMYCIN 500 MG TABLET PO SCH (09:12)
[2017-09-03] MEDS: DOCUSATE SODIUM 100MG CAPSULE PO SCH ×2 (09:13→17:37)
[2017-09-03] MEDS: FAMOTIDINE 20MG TABLET PO SCH ×2 (09:13→17:37)
[2017-09-03] MEDS: FUROSEMIDE 40MG TABLET PO SCH ×2 (09:13→17:38)
[2017-09-03] MEDS: GUAIFENESIN 600MG ER TABLET PO SCH ×2 (09:15→22:01)
[2017-09-03] MEDS: OLODATEROL PO SCH (09:15)
[2017-09-03] MEDS: TIOTROPIUM PO SCH (09:15)
[2017-09-03] MEDS: ENOXAPARIN 40MG/0.4ML SYR SUBCUT SCH (09:15)
[2017-09-03] MEDS: POTASSIUM CHLORIDE 20MEQ TABLET SR PO SCH ×2 (09:15→17:38)
[2017-09-03] MEDS: LIDOCAINE 5% PATCH TOP SCH (09:25)
[2017-09-03] MEDS: TRAMADOL 50MG TABLET PO PRN (10:36)
[2017-09-03 12:13] LABS: PLATELET ESTIMATE NORMAL
[2017-09-03] MEDS: CEFTRIAXONE 1 G PREMIX 50 ML IV SCH (12:53)
[2017-09-03 20:00] VITALS: BP 109/59
[2017-09-03] MEDS: POLYETHYLENE GLYCOL 3350 (17GM) 1 DOSE PACK PO SCH (21:00)
[2017-09-04 00:58] LABS: CLARITY URINE CLEAR (CLEAR); COLOR URINE YELLOW (YELLOW); GLUCOSE URINE NEGATIVE (NEGATIVE); KETONES URINE NEGATIVE (NEGATIVE); LEUKOCYTE ESTERASE URINE 2+ (NEGATIVE); NITRITE URINE NEGATIVE (NEGATIVE); OCCULT BLOOD URINE NEGATIVE (NEGATIVE); PROTEIN URINE NEGATIVE (NEGATIVE); SPECIFIC GRAVITY URINE 1.009 (1.005-1.030); UROBILINOGEN URINE 0.2 E.U./dL (0.2-1.0)
[2017-09-04] MEDS: ALBUTEROL (0.083%) 2.5MG/3ML NEB HHN SCH ×4 (01:15→20:45)
[2017-09-04] MEDS: DILTIAZEM HCL 60MG TABLET PO SCH ×3 (06:00→21:09)
[2017-09-04] MEDS: LEVOTHYROXINE SODIUM 75MCG TABLET PO SCH (06:39)
[2017-09-04 08:00] VITALS: BP 139/58
[2017-09-04 08:33] LABS: BASOPHILS % 0.6 % (0.0-2.0); HEMATOCRIT. 32.9 % (36.0-48.0); HEMOGLOBIN. 11.1 g/dL (12.0-16.0); LYMPHOCYTES % 19.2 % (20.0-50.0); MEAN CORPUSCULAR HEMOGLOBIN 32.4 pg (28.0-32.0); MEAN CORPUSCULAR VOLUME 96.1 fL (81.0-99.0); MEAN PLATELET VOLUME 8.7 fl (7.4-10.4); MONOCYTES % 6.6 % (2.0-8.0); NEUTROPHILS % 70.6 % (40.0-76.0); PLATELET 203 x1000/uL (130-400); RED BLOOD CELL COUNT 3.43 mill/uL (4.2-5.4); RED CELL DISTRIBUTION WIDTH 15.6 % (11.6-14.6)
[2017-09-04 09:30] LABS: CHLORIDE 96 mEq/L (98-107)
[2017-09-04] MEDS: POTASSIUM CHLORIDE 20MEQ TABLET SR PO SCH ×2 (09:32→17:20)
[2017-09-04] MEDS: AZITHROMYCIN 500 MG TABLET PO SCH (09:32)
[2017-09-04] MEDS: GUAIFENESIN 600MG ER TABLET PO SCH ×2 (09:32→21:08)
[2017-09-04] MEDS: FAMOTIDINE 20MG TABLET PO SCH ×2 (09:32→17:20)
[2017-09-04] MEDS: ENOXAPARIN 40MG/0.4ML SYR SUBCUT SCH (09:32)
[2017-09-04] MEDS: FUROSEMIDE 40MG TABLET PO SCH ×2 (09:32→17:20)
[2017-09-04] MEDS: LACTULOSE 20G/30ML UDC PO SCH ×2 (09:33→14:29)
[2017-09-04] MEDS: OLODATEROL PO SCH (09:33)
[2017-09-04] MEDS: TIOTROPIUM PO SCH (09:33)
[2017-09-04] MEDS: DOCUSATE SODIUM 100MG CAPSULE PO SCH ×2 (09:33→17:20)
[2017-09-04 09:39] LABS: CARBON DIOXIDE 36 mEq/L (21-32)
[2017-09-04] MEDS: LIDOCAINE 5% PATCH TOP SCH (09:49)
[2017-09-04] MEDS: CEFTRIAXONE 1 G PREMIX 50 ML IV SCH (12:55)
[2017-09-04 14:25] VITALS: BP 124/57
[2017-09-04] MEDS: TRAMADOL 50MG TABLET PO PRN (17:27)
[2017-09-04 20:00] VITALS: BP 124/69
[2017-09-04] MEDS: POLYETHYLENE GLYCOL 3350 (17GM) 1 DOSE PACK PO SCH (21:09)
[2017-09-04] MEDS: ACETAMINOPHEN 325MG TABLET PO PRN (23:06)
[2017-09-05] MEDS: ALBUTEROL (0.083%) 2.5MG/3ML NEB HHN SCH ×3 (02:21→21:08)
[2017-09-05] MEDS: DILTIAZEM HCL 60MG TABLET PO SCH ×3 (06:00→21:00)
[2017-09-05 06:12] LABS: HEMATOCRIT. 31.7 % (36.0-48.0); HEMOGLOBIN. 10.5 g/dL (12.0-16.0); MEAN CORPUSCULAR HEMOGLOBIN 31.9 pg (28.0-32.0); MEAN CORPUSCULAR VOLUME 96.3 fL (81.0-99.0); MEAN PLATELET VOLUME 8.5 fl (7.4-10.4); PLATELET 205 x1000/uL (130-400); RED BLOOD CELL COUNT 3.29 mill/uL (4.2-5.4); RED CELL DISTRIBUTION WIDTH 15.5 % (11.6-14.6)
[2017-09-05] MEDS: LEVOTHYROXINE SODIUM 75MCG TABLET PO SCH (06:16)
[2017-09-05 06:37] LABS: CARBON DIOXIDE 37 mEq/L (21-32); CHLORIDE 95 mEq/L (98-107)
[2017-09-05 08:00] VITALS: BP 97/55
[2017-09-05] MEDS: ENOXAPARIN 40MG/0.4ML SYR SUBCUT SCH (08:13)
[2017-09-05] MEDS: OLODATEROL PO SCH (08:15)
[2017-09-05] MEDS: TIOTROPIUM PO SCH (08:15)
[2017-09-05] MEDS: POTASSIUM CHLORIDE 20MEQ TABLET SR PO SCH ×2 (08:17→17:19)
[2017-09-05] MEDS: FAMOTIDINE 20MG TABLET PO SCH ×2 (08:17→17:19)
[2017-09-05] MEDS: GUAIFENESIN 600MG ER TABLET PO SCH ×2 (08:17→21:00)
[2017-09-05] MEDS: AZITHROMYCIN 500 MG TABLET PO SCH (08:17)
[2017-09-05] MEDS: DOCUSATE SODIUM 100MG CAPSULE PO SCH ×2 (08:17→17:19)
[2017-09-05] MEDS: FUROSEMIDE 40MG TABLET PO SCH ×2 (08:17→17:19)
[2017-09-05] MEDS: LIDOCAINE 5% PATCH TOP SCH (08:18)
[2017-09-05 10:22] LABS: PLATELET ESTIMATE NORMAL
[2017-09-05] MEDS: CEFTRIAXONE 1 G PREMIX 50 ML IV SCH (12:18)
[2017-09-05 17:12] LABS: 25-HYDROXY VITAMIN D3 58 ng/mL (.)
[2017-09-05 20:00] VITALS: BP 114/61
[2017-09-05] MEDS ORDERED: LORAZEPAM 0.5MG TABLET PO PRN (21:34)
[2017-09-06] MEDS: ALBUTEROL (0.083%) 2.5MG/3ML NEB HHN SCH ×4 (02:43→21:22)
[2017-09-06] MEDS: DILTIAZEM HCL 60MG TABLET PO SCH ×3 (05:24→22:00)
[2017-09-06] MEDS: LEVOTHYROXINE SODIUM 75MCG TABLET PO SCH (06:12)
[2017-09-06 08:00] VITALS: BP 131/46
[2017-09-06] MEDS: GUAIFENESIN 600MG ER TABLET PO SCH ×2 (08:46→22:29)
[2017-09-06] MEDS: POTASSIUM CHLORIDE 20MEQ TABLET SR PO SCH ×2 (08:47→16:27)
[2017-09-06] MEDS: FUROSEMIDE 40MG TABLET PO SCH ×2 (08:47→16:27)
[2017-09-06] MEDS: OLODATEROL PO SCH (08:47)
[2017-09-06] MEDS: ENOXAPARIN 40MG/0.4ML SYR SUBCUT SCH (08:47)
[2017-09-06] MEDS: DOCUSATE SODIUM 100MG CAPSULE PO SCH ×2 (08:47→16:27)
[2017-09-06] MEDS: TIOTROPIUM PO SCH (08:47)
[2017-09-06] MEDS: FAMOTIDINE 20MG TABLET PO SCH ×2 (08:47→16:27)
[2017-09-06] MEDS: LIDOCAINE 5% PATCH TOP SCH (08:48)
[2017-09-06] MEDS: TRAMADOL 50MG TABLET PO PRN ×2 (10:09→18:34)
[2017-09-06 20:00] VITALS: BP 99/57
[2017-09-07] MEDS: ALBUTEROL (0.083%) 2.5MG/3ML NEB HHN SCH ×2 (00:58→10:17)
[2017-09-07] MEDS: ACETAMINOPHEN 325MG TABLET PO PRN ×2 (01:43→14:07)
[2017-09-07] MEDS: DILTIAZEM HCL 60MG TABLET PO SCH (06:00)
[2017-09-07] MEDS: LEVOTHYROXINE SODIUM 75MCG TABLET PO SCH (06:05)
[2017-09-07 08:00] VITALS: BP 144/87
[2017-09-07] MEDS: LIDOCAINE 5% PATCH TOP SCH (08:53)
[2017-09-07] MEDS: FAMOTIDINE 20MG TABLET PO SCH (08:53)
[2017-09-07] MEDS: GUAIFENESIN 600MG ER TABLET PO SCH (08:53)
[2017-09-07] MEDS: DOCUSATE SODIUM 100MG CAPSULE PO SCH (08:53)
[2017-09-07] MEDS: FUROSEMIDE 40MG TABLET PO SCH (08:53)
[2017-09-07] MEDS: POTASSIUM CHLORIDE 20MEQ TABLET SR PO SCH (08:53)
[2017-09-07] MEDS: ENOXAPARIN 40MG/0.4ML SYR SUBCUT SCH (08:53)
[2017-09-07] MEDS: OLODATEROL PO SCH (08:54)
[2017-09-07] MEDS: TIOTROPIUM PO SCH (08:54)
[2017-09-07] MEDS: TRAMADOL 50MG TABLET PO PRN (09:14)
[2017-09-07] MEDS ORDERED: NITR100C PO (11:32)
[2017-09-07 13:45] VITALS: BP 132/84
== END 2017-09-07 14:20 | disposition home health service (06) | DRG 309 ==
PROVIDERS: ADMIT Physical Medicine & Rehabilitation Spinal Cord Injury Medicine; ATTEND Internal Medicine Critical Care Medicine
DX: I48.91 Unspecified atrial fibrillation (principal); E44.1 Mild protein-calorie malnutrition; J96.11 Chronic respiratory failure with hypoxia; I11.0 Hypertensive heart disease with heart failure; I50.9 Heart failure, unspecified; M48.02 Spinal stenosis, cervical region; I65.29 Occlusion and stenosis of unspecified carotid artery; J44.1 Chronic obstructive pulmonary disease with (acute) exacerbation; J96.12 Chronic respiratory failure with hypercapnia; N39.0 Urinary tract infection, site not specified; D64.9 Anemia, unspecified; R29.6 Repeated falls; M54.5 Low back pain; I48.92 Unspecified atrial flutter; E11.9 Type 2 diabetes mellitus without complications; E03.9 Hypothyroidism, unspecified; F32.9 Major depressive disorder, single episode, unspecified; G89.4 Chronic pain syndrome; I25.10 Atherosclerotic heart disease of native coronary artery without angina pectoris; I73.9 Peripheral vascular disease, unspecified; K59.09 Other constipation; M19.90 Unspecified osteoarthritis, unspecified site; M48.061 Spinal stenosis, lumbar region without neurogenic claudication; M75.01 Adhesive capsulitis of right shoulder; M75.02 Adhesive capsulitis of left shoulder; Z99.81 Dependence on supplemental oxygen; Z95.0 Presence of cardiac pacemaker; Z91.81 History of falling; Z79.899 Other long term (current) drug therapy; B95.2 Enterococcus as the cause of diseases classified elsewhere; Z88.8 Allergy status to other drugs, medicaments and biological substances; Z91.041 Radiographic dye allergy status; Z91.013 Allergy to seafood; Z68.30 Body mass index [BMI] 30.0-30.9, adult
CPT/HCPCS: 36415; 80048; 80053; 80061; 81001; 82270; 82306; 82607; 82728; 82746; 82962; 83036; 83540; 83550; 83735; 84100; 84134; 84443; 84630; 85025; 87077; 87086; 87186; 92523; 92610; 93970; 94640; 94667; 97110; 97112; 97116; 97161; 97162; 97163; 97530; 97535; J0696; J1650; J7050; J7611

== ENCOUNTER 2018-09-05 01:24 | Inpatient (IN) | payer MEDICARE, BC ==
[~2018-09-05] VITALS: Ht 160 cm; Wt 73.9 kg
[~2018-09-05 01:24] MED LIST changes: -ARFO15VI2 IH; -ATOR20TA PO; -BENZ-16 PO; -BUDE6HFA IH; -CALC-1011 PO; -CALC-258 PO; -COMBIV INH; -CRAN1POW2 MC; -CYAN1LOZ SL; -DEBROX EACH EAR; -DOCU-150 PO; -DULO60CA44 PO; -ESOM40CA PO; -FURO-151 PO; -GUAI1TBM14 PO; -HYDR-519 PO; -IPRA0.2S51 IH; -LACT1CAP68 PO; -LEVO75TA7 PO; -LORA0.5T2 PO; -METH1TAB33 PO; -METO5TAB69 PO; -MONT10TA21 PO; -MULT1CAP34 PO; +NITR100C PO; -OMEG-31 PO; -OMEP20TA2 PO; -P20 PO; -PARO30TA76 PO; -POTA20TA82 PO; -PREG50CA PO; -SYSOS BOTHEYE; -TRAZ-132 PO; -VIT1CAPS5 PO; -VIT1CAPS7 PO; -lactulose PO
[2018-09-05] MEDS ORDERED: IPRATROPIUM BROMIDE (0.02%) 0.5MG/2.5ML NEB HHN STA (01:40)
[2018-09-05] MEDS ORDERED: ALBUTEROL (0.083%) 2.5MG/3ML NEB HHN STA (01:40)
[2018-09-05] MEDS ORDERED: METHYLPREDNISOLONE SOD SUCC 125 MG/2 ML VIAL IV STA (01:40)
[2018-09-05 02:25] LABS: BG BASE EXCESS 20.1 mmol/L (-2.0-2.0); BG CARBOXYHEMOGLOBIN 0.9 % (0.5-1.5); BG DEOXYHEMOGLOBIN 2.7 % (0.0-5.0); BG FRACTION INSPIRED OXYGEN 32; BG HCO3 ACT 48.8 mmol/L (22.0-26.0); BG METHEMOGLOBIN 0.3 % (0.0-1.5); BG OXYGEN SATURATION 97.3 % (92.0-98.5); BG OXYHEMOGLOBIN 96.1 % (94.0-97.0); BG PCO2 79.5 mmHg (35.0-45.0); BG PH 7.406 (7.350-7.450); BG SAMPLE SITE RIGHT RADIAL; BG VENT MODE NASAL CANNULA
[2018-09-05 02:53] LABS: BASOPHILS % 0.6 % (0.0-2.0); EOSINOPHILS % 4.4 % (0.0-5.0); HEMATOCRIT. 35.1 % (36.0-48.0); HEMOGLOBIN. 11.5 g/dL (12.0-16.0); LYMPHOCYTES % 33.1 % (20.0-50.0); MEAN CORPUSCULAR VOLUME 97.6 fL (81.0-99.0); MEAN PLATELET VOLUME 9.2 fl (7.4-10.4); MONOCYTES % 8.4 % (2.0-8.0); NEUTROPHILS % 53.5 % (40.0-76.0); PLATELET 176 x1000/uL (130-400); RED BLOOD CELL COUNT 3.59 mill/uL (4.2-5.4); RED CELL DISTRIBUTION WIDTH 16.2 % (11.6-14.6)
[2018-09-05 03:04] LABS: CHLORIDE 88 mEq/L (98-107)
[2018-09-05] MEDS ORDERED: CEFTRIAXONE 1 G PREMIX 50 ML IV ONE (03:45)
[2018-09-05] MEDS ORDERED: AZITHROMYCIN 500 MG in DEXT 5% WATER 250 ML IV ONE (03:45)
[2018-09-05] MEDS ORDERED: CLONIDINE 0.1MG TABLET PO PRN (06:15)
[2018-09-05 09:00] VITALS: BP 128/58
[2018-09-05] MEDS ORDERED: IPRATROPIUM BROMIDE (0.02%) 0.5MG/2.5ML NEB HHN SCH (10:30)
[2018-09-05] MEDS ORDERED: BUDESONIDE 0.5MG/2ML NEB HHN SCH (11:00)
[2018-09-05] MEDS: DULOXETINE HCL 60MG DR CAPSULE PO SCH (11:24)
[2018-09-05] MEDS: LOSARTAN POTASSIUM 25 MG TABLET PO SCH (11:24)
[2018-09-05] MEDS: GUAIFENESIN 600MG ER TABLET PO SCH ×2 (11:24→20:30)
[2018-09-05] MEDS: AMLODIPINE 2.5MG TABLET PO SCH ×2 (11:24→17:00)
[2018-09-05] MEDS: ENOXAPARIN 40MG/0.4ML SYR SUBCUT SCH (11:26)
[2018-09-05 12:00] VITALS: BP 110/49
[2018-09-05] MEDS ORDERED: FLUTICASONE/VILANTEROL 200-25 BLST.W.DEV ORI SCH (12:00)
[2018-09-05] MEDS: ALBUTEROL (0.083%) 2.5MG/3ML NEB HHN SCH (14:25)
[2018-09-05] MEDS: AZITHROMYCIN 500 MG in DEXT 5% WATER 250 ML IV SCH (14:29)
[2018-09-05 14:46] VITALS: BP 88/48
[2018-09-05] MEDS: CEFTRIAXONE 1 G PREMIX 50 ML IV SCH (14:54)
[2018-09-05 15:33] VITALS: BP 102/46
[2018-09-05] MEDS ORDERED: DULO60CA63 MT (15:59)
[2018-09-05] MEDS ORDERED: PRED15SO23 PO (15:59)
[2018-09-05] MEDS ORDERED: ASCO100T12 MT (15:59)
[2018-09-05] MEDS ORDERED: ASPI-1159 MT (15:59)
[2018-09-05] MEDS ORDERED: DOCU100T MT (15:59)
[2018-09-05] MEDS ORDERED: GUAI600T44 MT (15:59)
[2018-09-05] MEDS ORDERED: TRAM50TA MT (15:59)
[2018-09-05] MEDS ORDERED: LOSA25TA12 PO (15:59)
[2018-09-05] MEDS ORDERED: POTA-79 MT (15:59)
[2018-09-05] MEDS ORDERED: LORA1TAB MT (15:59)
[2018-09-05] MEDS ORDERED: LIDO700A30 TP (15:59)
[2018-09-05] MEDS ORDERED: POLY250017 MT (15:59)
[2018-09-05] MEDS ORDERED: LEVO75TA7 MT (15:59)
[2018-09-05] MEDS ORDERED: PREG75CA MT (15:59)
[2018-09-05] MEDS ORDERED: FURO40TA5 MT (15:59)
[2018-09-05] MEDS ORDERED: SODIUM CHLORIDE 0.9% 500 ML IV NR ×2 (16:00)
[2018-09-05] MEDS ORDERED: DEXTROSE 50% WATER 50ML SYRINGE IV PRN (16:30)
[2018-09-05] MEDS ORDERED: SODIUM CHLORIDE 0.9% 500 ML IV ONE (17:00)
[2018-09-05 17:14] VITALS: BP 100/44
[2018-09-05] MEDS ORDERED: BLOOD SUGAR DIAGNOSTIC STRIP TEST SCH (17:20)
[2018-09-05 17:37] LABS: BASOPHILS % 0.8 % (0.0-2.0); EOSINOPHILS % 0.7 % (0.0-5.0); HEMATOCRIT. 31.5 % (36.0-48.0); HEMOGLOBIN. 10.4 g/dL (12.0-16.0); LYMPHOCYTES % 20.4 % (20.0-50.0); MEAN CORPUSCULAR HEMOGLOBIN 32.4 pg (28.0-32.0); MEAN CORPUSCULAR VOLUME 97.9 fL (81.0-99.0); MEAN PLATELET VOLUME 9.8 fl (7.4-10.4); MONOCYTES % 9.6 % (2.0-8.0); NEUTROPHILS % 68.5 % (40.0-76.0); PLATELET 191 x1000/uL (130-400); RED BLOOD CELL COUNT 3.21 mill/uL (4.2-5.4); RED CELL DISTRIBUTION WIDTH 15.9 % (11.6-14.6)
[2018-09-05] MEDS: BLOOD SUGAR DIAGNOSTIC STRIP TEST SCH ×2 (17:44→20:29)
[2018-09-05] MEDS: INSULIN LISPRO 100 UNITS/ML SUBCUT SCH ×2 (17:48→20:29)
[2018-09-05 17:56] LABS: CHLORIDE 90 mEq/L (98-107)
[2018-09-05 20:00] VITALS: BP 126/54
[2018-09-05] MEDS: ATORVASTATIN CALCIUM 20MG TABLET PO SCH (20:30)
[2018-09-05] MEDS: HYDROCODONE/ACETAMINOPHEN 5/325MG TABLET PO PRN (20:31)
[2018-09-06] VITALS (7 sets, daily range): BP systolic 101–153; BP diastolic 36–75
[2018-09-06] MEDS: ALBUTEROL (0.083%) 2.5MG/3ML NEB HHN SCH (01:40)
[2018-09-06] MEDS: BLOOD SUGAR DIAGNOSTIC STRIP TEST SCH ×4 (06:27→20:44)
[2018-09-06] MEDS: HYDROCODONE/ACETAMINOPHEN 5/325MG TABLET PO PRN ×3 (06:38→21:44)
[2018-09-06] MEDS: INSULIN LISPRO 100 UNITS/ML SUBCUT SCH ×4 (07:50→20:44)
[2018-09-06] MEDS: ASPIRIN 81MG TABLET PO SCH (08:21)
[2018-09-06] MEDS: ENOXAPARIN 40MG/0.4ML SYR SUBCUT SCH (08:21)
[2018-09-06] MEDS: DULOXETINE HCL 60MG DR CAPSULE PO SCH (08:21)
[2018-09-06] MEDS: AMLODIPINE 2.5MG TABLET PO SCH ×2 (08:22→17:41)
[2018-09-06] MEDS: LOSARTAN POTASSIUM 25 MG TABLET PO SCH (08:22)
[2018-09-06] MEDS: GUAIFENESIN 600MG ER TABLET PO SCH ×2 (08:22→20:43)
[2018-09-06 09:33] LABS: CHLORIDE 91 mEq/L (98-107)
[2018-09-06 10:14] LABS: BG BASE EXCESS 18.2 mmol/L (-2.0-2.0); BG CARBOXYHEMOGLOBIN 0.9 % (0.5-1.5); BG DEOXYHEMOGLOBIN 5.9 % (0.0-5.0); BG HCO3 ACT 46.4 mmol/L (22.0-26.0); BG METHEMOGLOBIN 0.1 % (0.0-1.5); BG OXYHEMOGLOBIN 93.1 % (94.0-97.0); BG PCO2 74.7 mmHg (35.0-45.0); BG PH 7.411 (7.350-7.450); BG PO2 71.5 mmHg (75.0-100.0); BG SAMPLE SITE RIGHT BRACHIAL; BG TOTAL HEMOGLOBIN 12.1 g/dL (12.0-18.0); BG VENT MODE NASAL CANNULA
[2018-09-06 10:39] LABS: BASOPHILS % 0.6 % (0.0-2.0); EOSINOPHILS % 2.5 % (0.0-5.0); HEMATOCRIT. 32.5 % (36.0-48.0); HEMOGLOBIN. 10.7 g/dL (12.0-16.0); LYMPHOCYTES % 20.2 % (20.0-50.0); MEAN CORPUSCULAR HEMOGLOBIN 31.8 pg (28.0-32.0); MEAN CORPUSCULAR VOLUME 96.8 fL (81.0-99.0); MEAN PLATELET VOLUME 8.8 fl (7.4-10.4); MONOCYTES % 6.4 % (2.0-8.0); NEUTROPHILS % 70.3 % (40.0-76.0); PLATELET 167 x1000/uL (130-400); RED BLOOD CELL COUNT 3.36 mill/uL (4.2-5.4); RED CELL DISTRIBUTION WIDTH 16.3 % (11.6-14.6)
[2018-09-06] MEDS: METHYLPREDNISOLONE SOD SUCC 40 MG/ML VIAL IV SCH ×3 (12:39→21:03)
[2018-09-06] MEDS ORDERED: ALBUTEROL (0.083%) 2.5MG/3ML NEB HHN PRN (15:45)
[2018-09-06] MEDS: AZITHROMYCIN 500 MG in DEXT 5% WATER 250 ML IV SCH (16:36)
[2018-09-06] MEDS: CEFTRIAXONE 1 G PREMIX 50 ML IV SCH (20:40)
[2018-09-06] MEDS: ATORVASTATIN CALCIUM 20MG TABLET PO SCH (20:43)
[2018-09-06] MEDS: IPRATROPIUM/ALBUTEROL 0.5-3(2.5)MG/3ML NEB HHN SCH (20:56)
[2018-09-07] MEDS: IPRATROPIUM/ALBUTEROL 0.5-3(2.5)MG/3ML NEB HHN SCH ×4 (01:22→20:32)
[2018-09-07 04:46] VITALS: BP 156/74
[2018-09-07] MEDS: METHYLPREDNISOLONE SOD SUCC 40 MG/ML VIAL IV SCH ×3 (06:12→21:39)
[2018-09-07] MEDS: BLOOD SUGAR DIAGNOSTIC STRIP TEST SCH ×4 (06:36→21:35)
[2018-09-07] MEDS: HYDROCODONE/ACETAMINOPHEN 5/325MG TABLET PO PRN ×2 (06:36→11:27)
[2018-09-07 07:01] LABS: BASOPHILS % 0.2 % (0.0-2.0); HEMATOCRIT. 39.6 % (36.0-48.0); HEMOGLOBIN. 12.8 g/dL (12.0-16.0); LYMPHOCYTES % 12.1 % (20.0-50.0); MEAN CORPUSCULAR HEMOGLOBIN 31.1 pg (28.0-32.0); MEAN CORPUSCULAR VOLUME 96.1 fL (81.0-99.0); MEAN PLATELET VOLUME 9.3 fl (7.4-10.4); MONOCYTES % 4.3 % (2.0-8.0); NEUTROPHILS % 83.4 % (40.0-76.0); PLATELET 199 x1000/uL (130-400); RED BLOOD CELL COUNT 4.12 mill/uL (4.2-5.4); RED CELL DISTRIBUTION WIDTH 15.8 % (11.6-14.6)
[2018-09-07 07:11] LABS: CHLORIDE 94 mEq/L (98-107)
[2018-09-07] MEDS: INSULIN LISPRO 100 UNITS/ML SUBCUT SCH ×4 (07:50→21:44)
[2018-09-07] MEDS: GUAIFENESIN 600MG ER TABLET PO SCH ×2 (09:01→21:32)
[2018-09-07] MEDS: DULOXETINE HCL 60MG DR CAPSULE PO SCH (09:01)
[2018-09-07] MEDS: LOSARTAN POTASSIUM 25 MG TABLET PO SCH (09:01)
[2018-09-07] MEDS: ENOXAPARIN 40MG/0.4ML SYR SUBCUT SCH (09:01)
[2018-09-07] MEDS: ASPIRIN 81MG TABLET PO SCH (09:01)
[2018-09-07] MEDS: AMLODIPINE 2.5MG TABLET PO SCH ×2 (09:02→17:00)
[2018-09-07 12:00] VITALS: BP 95/35
[2018-09-07 16:00] VITALS: BP 104/44
[2018-09-07] MEDS ORDERED: AZITHROMYCIN 500 MG in DEXT 5% WATER 250 ML IV SCH (16:00)
[2018-09-07 20:00] VITALS: BP 108/56
[2018-09-07] MEDS ORDERED: CEFTRIAXONE 1 G PREMIX 50 ML IV SCH (20:00)
[2018-09-07] MEDS: ATORVASTATIN CALCIUM 20MG TABLET PO SCH (21:32)
[2018-09-08 00:24] VITALS: BP 110/58
[2018-09-08] MEDS: IPRATROPIUM/ALBUTEROL 0.5-3(2.5)MG/3ML NEB HHN SCH ×3 (01:00→14:46)
[2018-09-08 04:00] VITALS: BP 150/52
[2018-09-08] MEDS: HYDROCODONE/ACETAMINOPHEN 5/325MG TABLET PO PRN (06:22)
[2018-09-08] MEDS: BLOOD SUGAR DIAGNOSTIC STRIP TEST SCH ×2 (06:28→12:13)
[2018-09-08] MEDS: METHYLPREDNISOLONE SOD SUCC 40 MG/ML VIAL IV SCH ×2 (06:29→14:05)
[2018-09-08 08:00] VITALS: BP 113/71
[2018-09-08] MEDS: INSULIN LISPRO 100 UNITS/ML SUBCUT SCH ×2 (08:44→12:13)
[2018-09-08] MEDS: AMLODIPINE 2.5MG TABLET PO SCH (08:45)
[2018-09-08] MEDS: LOSARTAN POTASSIUM 25 MG TABLET PO SCH (08:45)
[2018-09-08] MEDS: DULOXETINE HCL 60MG DR CAPSULE PO SCH (08:45)
[2018-09-08] MEDS: ASPIRIN 81MG TABLET PO SCH (08:45)
[2018-09-08] MEDS: GUAIFENESIN 600MG ER TABLET PO SCH (08:45)
[2018-09-08] MEDS: ENOXAPARIN 40MG/0.4ML SYR SUBCUT SCH (08:46)
[2018-09-08 10:49] LABS: BASOPHILS % 0.1 % (0.0-2.0); HEMATOCRIT. 35.3 % (36.0-48.0); HEMOGLOBIN. 11.7 g/dL (12.0-16.0); LYMPHOCYTES % 8.4 % (20.0-50.0); MEAN CORPUSCULAR HEMOGLOBIN 31.9 pg (28.0-32.0); MEAN CORPUSCULAR VOLUME 96.3 fL (81.0-99.0); MEAN PLATELET VOLUME 8.9 fl (7.4-10.4); MONOCYTES % 5.5 % (2.0-8.0); PLATELET 209 x1000/uL (130-400); RED BLOOD CELL COUNT 3.66 mill/uL (4.2-5.4); RED CELL DISTRIBUTION WIDTH 16.2 % (11.6-14.6)
[2018-09-08 11:25] LABS: CHLORIDE 92 mEq/L (98-107)
[2018-09-08 12:06] VITALS: BP 102/40
[2018-09-08 13:36] VITALS: BP 102/40
== END 2018-09-08 15:45 | disposition home health service (06) | DRG 193 ==
LOC: ER 01:24 → 6WST 03:39 → EDBEDREQ 03:42 → EDBEDREQTM 03:42 → ENRESERV 08:11 → SUPCPDRO 08:18
PROVIDERS: ADMIT Internal Medicine Critical Care Medicine; ATTEND Internal Medicine Critical Care Medicine
DX: J18.9 Pneumonia, unspecified organism (principal); J96.21 Acute and chronic respiratory failure with hypoxia; J96.22 Acute and chronic respiratory failure with hypercapnia; J44.1 Chronic obstructive pulmonary disease with (acute) exacerbation; J98.11 Atelectasis; J44.0 Chronic obstructive pulmonary disease with (acute) lower respiratory infection; M19.90 Unspecified osteoarthritis, unspecified site; E03.9 Hypothyroidism, unspecified; I11.0 Hypertensive heart disease with heart failure; M48.02 Spinal stenosis, cervical region; I25.10 Atherosclerotic heart disease of native coronary artery without angina pectoris; F32.9 Major depressive disorder, single episode, unspecified; M48.061 Spinal stenosis, lumbar region without neurogenic claudication; I95.9 Hypotension, unspecified; I50.9 Heart failure, unspecified; E11.51 Type 2 diabetes mellitus with diabetic peripheral angiopathy without gangrene; E78.5 Hyperlipidemia, unspecified; K59.00 Constipation, unspecified; G89.29 Other chronic pain; I45.4 Nonspecific intraventricular block; I48.0 Paroxysmal atrial fibrillation; Z95.0 Presence of cardiac pacemaker; Z87.891 Personal history of nicotine dependence; Z99.81 Dependence on supplemental oxygen; Z79.890 Hormone replacement therapy; Z91.013 Allergy to seafood; Z88.5 Allergy status to narcotic agent; Z91.048 Other nonmedicinal substance allergy status; Z79.82 Long term (current) use of aspirin; Z79.899 Other long term (current) drug therapy
CPT/HCPCS: 36415; 36600; 71045; 80048; 82375; 82805; 82962; 83605; 83735; 83880; 84443; 84484; 85379; 93005; 93970; 94640; 97162; 97166; 97530; 97535; 99285; J0456; J0696; J1650; J1815; J2920; J2930; J7040; J7050; J7060; J7611; J7620; J7626